=== PATIENT | female | born 1960 | race Caucasian/White ===

== ENCOUNTER → 2019-09-22 | Outpatient (CLI) | payer BC ==
[2019-09-22 11:04] LABS: Source, Urine Clean Catch
[2019-09-22 11:10] LABS: BASOPHILS ABSOLUTE AUTO 0.09 K/mm3 (0.00-0.23); BASOPHILS PERCENT AUTO 1 % (0-2); EOSINOPHILS ABSOLUTE AUTO 0.13 K/mm3 (0.00-0.68); EOSINOPHILS PERCENT AUTO 2 % (0-6); Hematocrit 41.2 % (33.0-51.0); Hemoglobin 13.8 g/dL (11.5-16.0); IMMATURE GRAN ABSOLUTE AUTO 0.02 K/mm3 (0.00-0.10); IMMATURE GRAN PERCENT AUTO 0 % (0-1); LYMPHOCYTES ABSOLUTE AUTO 2.47 K/mm3 (0.84-5.20); LYMPHOCYTES PERCENT AUTO 37 % (21-46); MONOCYTES ABSOLUTE AUTO 0.54 K/mm3 (0.16-1.47); MONOCYTES PERCENT AUTO 8 % (4-13); Mean Corpuscular HGB 31.2 pg (26.0-34.0); Mean Corpuscular HGB Conc 33.5 g/dL (31.5-36.5); Mean Corpuscular Volume 93 fL (80-100); Mean Platelet Volume 10.4 fL (9.1-12.4); NEUTROPHILS ABSOLUTE AUTO 3.36 K/mm3 (1.96-9.15); NEUTROPHILS PERCENT AUTO 51 % (41-73); Platelet Count 392 K/mm3 (150-400); RDW Coefficient Variation 13.4 % (11.7-14.2); RDW Standard Deviation 45.7 fL (35.1-46.3); Red Blood Cell Count 4.43 M/mm3 (3.80-5.20); White Blood Cell Count 6.61 K/mm3 (4.00-11.30)
[2019-09-22 11:22] LABS: Bacteria Few /hpf; Red Blood Cells, Urine 0-2 /hpf (0-2); Squamous Epithelial Cells Mod /hpf (Few)
[2019-09-22 11:28] LABS: Alanine Aminotransfer (ALT/SGP 15 U/L (12-78); Albumin, Blood 4.1 g/dL (3.4-5.0); Albumin/Globulin Ratio 1.1 (0.8-1.8); Alk Phos 94 U/L (40-126); Anion Gap 9 mmol/L (6-16); Aspartate Aminotrans (AST/SGOT 17 U/L (12-37); Bilirubin, Total 0.3 mg/dL (0.1-1.0); Blood Urea Nitrogen 21 mg/dL (8-24); Bun/Creatinine Ratio 32.3 (12.0-20.0); CO2, Blood 23 mmol/L (21-32); Calcium, Blood 9.2 mg/dL (8.5-10.1); Chloride, Blood 105 mmol/L (98-108); Creatinine, Blood 0.65 mg/dL (0.40-1.00); Globulin, Blood 3.8 g/dL (2.2-4.0); Glomerular Filtration Rate >60 (60-); Glucose, Blood 86 mg/dL (70-99); Potassium, Blood 4.2 mmol/L (3.5-5.5); Sodium, Blood 137 mmol/L (136-145); Thyroid Stimulating Hormone 1.612 uIU/mL (0.360-4.800); Total Protein, Blood 7.9 g/dL (6.4-8.2)
[2019-09-22 11:30] LABS: Troponin I <0.017 ng/mL (0.000-0.040)
== END | disposition home or self-care (01) ==
LOC: LAB SHORT 10:58 → LAB EV 10:58
PROVIDERS: Physician Assistant
DX: R35.0 Frequency of micturition (principal); R07.9 Chest pain, unspecified; R53.83 Other fatigue
CPT/HCPCS: 80053; 81015; 84443; 84484; 85025; 87086

== ENCOUNTER → 2019-11-16 | Outpatient (CLI) | payer BC ==
[2019-11-16 15:09] LABS: Source, Urine Clean Catch
[2019-11-16 16:03] LABS: Appearance, Urine Clear (Clear); Bilirubin, Urine Neg (Neg); Blood, Urine Neg (Neg); Color, Urine Yellow (P-Yellow); Glucose Qualitative, Urine Neg (Normal); Ketones, Urine 1+ (Neg); Leukocyte Esterase, Urine Neg (Neg); Nitrite, Urine Neg (Neg); Protein, Urine Neg (Neg); Urobilinogen, Urine NORM (Normal)
== END ==
LOC: LAB EV 15:04 → LAB FUT 11-15 10:45
PROVIDERS: Physician Assistant Medical
DX: R30.9 Painful micturition, unspecified (principal)
CPT/HCPCS: 81003

== ENCOUNTER 2021-06-10 13:09 | Day surgery (SDC) | payer BC ==
[~2021-06-10] VITALS: Ht 160 cm; Wt 56.3 kg
[2021-06-10] MEDS ORDERED: OMEP20ER PO (13:42)
[2021-06-10] MEDS ORDERED: CLIMARA1 EACH TOP (13:42)
[2021-06-10] MEDS ORDERED: ACET325 PO (13:43)
--- NOTE | 2021-06-10 17:05 | NUR ---
06/10/21 1705 Jennifer Rothman PT.'S BP ELEVATED POST PROCEDURE. DR. MISTRY AWARE. WILL CONTINUE TO MONITOR. PT. ALSO VERBALIZES HAVING A LITTLE CRAMPING IN ABD. BUT JUST A LITTLE. PT. GIVEN WARM BLANKETS. PT. DRINKING WATER & EATING JAMIR CRACKERS. CALL LIGHT IS WITHIN REACH. PT.SITTING UP IN RECLINER.
== END 2021-06-10 17:11 | disposition home or self-care (01) ==
LOC: ORSCSDS 13:09
PROVIDERS: Student in an Organized Health Care Education/Training Program
PROC: 0DB68ZX Excision of Stomach, Via Natural or Artificial Opening Endoscopic, Diagnostic (ICD-10-PCS; principal; 2021-06-10 14:30)
PROC: 0DBK8ZX Excision of Ascending Colon, Via Natural or Artificial Opening Endoscopic, Diagnostic (ICD-10-PCS; principal; 2021-06-10 14:30)
PROC: 3E0H8KZ Introduction of Other Diagnostic Substance into Lower GI, Via Natural or Artificial Opening Endoscopic (ICD-10-PCS; principal; 2021-06-10 14:30)
PROC: 0DBM8ZX Excision of Descending Colon, Via Natural or Artificial Opening Endoscopic, Diagnostic (ICD-10-PCS; principal; 2021-06-10 14:30)
PROC: 0DBL8ZX Excision of Transverse Colon, Via Natural or Artificial Opening Endoscopic, Diagnostic (ICD-10-PCS; principal; 2021-06-10 14:30)
PROC: 0DB58ZX Excision of Esophagus, Via Natural or Artificial Opening Endoscopic, Diagnostic (ICD-10-PCS; principal; 2021-06-10 14:30)
PROC: 0DBN8ZX Excision of Sigmoid Colon, Via Natural or Artificial Opening Endoscopic, Diagnostic (ICD-10-PCS; principal; 2021-06-10 14:30)
DX: R19.5 Other fecal abnormalities (principal); K57.30 Diverticulosis of large intestine without perforation or abscess without bleeding; D12.2 Benign neoplasm of ascending colon; D12.4 Benign neoplasm of descending colon; K31.7 Polyp of stomach and duodenum; K29.70 Gastritis, unspecified, without bleeding; K21.9 Gastro-esophageal reflux disease without esophagitis; R10.9 Unspecified abdominal pain; R63.4 Abnormal weight loss; I12.9 Hypertensive chronic kidney disease with stage 1 through stage 4 chronic kidney disease, or unspecified chronic kidney disease; N18.9 Chronic kidney disease, unspecified; Z80.0 Family history of malignant neoplasm of digestive organs; Z87.891 Personal history of nicotine dependence
CPT/HCPCS: 88305; 88342; J0330; J0461; J2405; J2704; J7120

== ENCOUNTER 2022-09-16 07:55 | Day surgery (SDC) | payer BC ==
[~2022-09-16] VITALS: Ht 157.5 cm; Wt 64.9 kg
[~2022-09-16 07:55] MED LIST: ACET325 PO; CLIMARA1 EACH TOP; OMEP20ER PO
--- NOTE | 2022-09-16 13:39 | NUR ---
ARRIVAL PT ARRIVED TO UNIT FROM PACU. SHE IS ALERT AND ORIENTED. SHE DENIES PAIN CURRENTLY AND HAS MINIMAL SENSATION IN HER LOWER EXTREMETIES FROM THE SPINAL. ABLE TO WIGGLE HER TOES. PPX4. POLAR PACK IN PLACE, TEDHOSE ON. CALL LIGHT IN REACH. PT PROVIDED WITH ICE WATER, JELLO AND CRACKERS. TOLERATING WELL. PT WILL CALL ONCE PAIN BEGINS TO INCREASE. SHE DENIES FURTHER NEEDS AT THIS TIME AND WANTS TO SLEEP CURRENTLY. AQUACEL IN PLACE, CDI.
--- NOTE | 2022-09-16 19:08 | NUR ---
SHIFT SUMMARY S/P LTHA DRESSING CDI, POLAR VIKTORIA ON. PT WORKED WITH THERAPY X1, WILL WORK AGAIN IN THE MORNING AND DISCHARGE. PAIN CONTROLLED PER EMAR, NAUSEA X1. RESOLVED AFTER MEDICATION. PAIN CONTROLLED AT THIS TIME. CALL LIGHT IN REACH. PT DENIES FURTHER NEEDS.
--- NOTE | 2022-09-17 05:05 | NUR ---
SHIFT SUMMARY PT RESTED WELL T/O SHIFT. 2 KURT/TYLENOL/TORADOL FOR PAIN MANAGEMENT. LEFT HIP DRESSING REMAINS CDI WITH POLAR PACK IN PLACE. UP WITH 1 ASSIST USING FWW/GB TO BRP. NAUSEA X1. NO EMESIS. USES CALL LIGHT APPROPRIATELY.
[2022-09-17 05:14] LABS: BASOPHILS ABSOLUTE AUTO 0.04 K/mm3 (0.00-0.23); BASOPHILS PERCENT AUTO 0 % (0-2); EOSINOPHILS PERCENT AUTO 0 % (0-6); Hematocrit 35.2 % (33.0-51.0); Hemoglobin 11.3 g/dL (11.5-16.0); IMMATURE GRAN ABSOLUTE AUTO 0.09 K/mm3 (0.00-0.10); IMMATURE GRAN PERCENT AUTO 0 % (0-1); LYMPHOCYTES ABSOLUTE AUTO 1.07 K/mm3 (0.84-5.20); LYMPHOCYTES PERCENT AUTO 5 % (21-46); MONOCYTES ABSOLUTE AUTO 1.43 K/mm3 (0.16-1.47); MONOCYTES PERCENT AUTO 7 % (4-13); Mean Corpuscular HGB 29.1 pg (26.0-34.0); Mean Corpuscular HGB Conc 32.1 g/dL (31.5-36.5); Mean Corpuscular Volume 91 fL (80-100); Mean Platelet Volume 10.6 fL (9.1-12.4); NEUTROPHILS ABSOLUTE AUTO 18.59 K/mm3 (1.96-9.15); NEUTROPHILS PERCENT AUTO 88 % (41-73); Platelet Count 336 K/mm3 (150-400); RDW Coefficient Variation 13.5 % (11.7-14.2); RDW Standard Deviation 45.1 fL (35.1-46.3); Red Blood Cell Count 3.88 M/mm3 (3.80-5.20); White Blood Cell Count 21.22 K/mm3 (4.00-11.30)
[2022-09-17 05:55] LABS: Bun/Creatinine Ratio 37.1 (12.0-20.0); Calcium, Blood 8.8 mg/dL (8.5-10.1); Creatinine, Blood 0.54 mg/dL (0.40-1.00)
[2022-09-17] MEDS ORDERED: ASPI81CH PO (08:19)
[2022-09-17] MEDS ORDERED: Percocet 5-3251 EACH PO (08:19)
--- NOTE | 2022-09-17 10:21 | NUR ---
DISCHARGE: PACKET PRINTED AND PT EDUCATED. IV DC WNL, TIP INTACT. PT GIVEN EXTRA AQUACEL DRESSINGS. PER PT SCRIPTS PREVIOUSLY FILLED. LEFT UNIT WITH THIS RN AT ABOUT 1000.
== END 2022-09-17 10:07 | disposition home or self-care (01) ==
LOC: ORSCMMR 07:55 → ORD 09:15 → ORSCMMR 09:15 → SURS 13:20 → ORSCMMR 09-17 10:07
PROVIDERS: Orthopaedic Surgery
PROC: 0SRB0JZ Replacement of Left Hip Joint with Synthetic Substitute, Open Approach (ICD-10-PCS; principal; 2022-09-16 09:15)
DX: M16.12 Unilateral primary osteoarthritis, left hip (principal); I25.10 Atherosclerotic heart disease of native coronary artery without angina pectoris; E78.5 Hyperlipidemia, unspecified; Z87.891 Personal history of nicotine dependence; K21.9 Gastro-esophageal reflux disease without esophagitis; Z79.899 Other long term (current) drug therapy; Z79.82 Long term (current) use of aspirin
CPT/HCPCS: 36415; 72170; 80048; 85025; 97110; 97116; 97161; 97530; A9270; C1713; C1776; J0171; J0690; J0735; J1100; J1170; J1885; J2250; J2370; J2405; J2704; J2765; J2795; J3010; J3370; J7120

== ENCOUNTER 2022-12-04 05:24 | Emergency (ER) | payer SELFPAY ==
[~2022-12-04] VITALS: Ht 160 cm; Wt 61.2 kg
[~2022-12-04 05:24] MED LIST changes: +ASPI81CH PO; +ONDA4ODT MM; +Percocet 5-3251 EACH PO
[2022-12-04 06:04] LABS: BASOPHILS PERCENT AUTO 1 % (0-2); EOSINOPHILS ABSOLUTE AUTO 0.12 K/mm3 (0.00-0.68); EOSINOPHILS PERCENT AUTO 1 % (0-6); Hematocrit 35.2 % (33.0-51.0); Hemoglobin 11.7 g/dL (11.5-16.0); IMMATURE GRAN ABSOLUTE AUTO 0.21 K/mm3 (0.00-0.10); IMMATURE GRAN PERCENT AUTO 2 % (0-1); LYMPHOCYTES ABSOLUTE AUTO 1.75 K/mm3 (0.84-5.20); LYMPHOCYTES PERCENT AUTO 15 % (21-46); MONOCYTES ABSOLUTE AUTO 0.98 K/mm3 (0.16-1.47); MONOCYTES PERCENT AUTO 8 % (4-13); Mean Corpuscular HGB 27.9 pg (26.0-34.0); Mean Corpuscular HGB Conc 33.2 g/dL (31.5-36.5); Mean Corpuscular Volume 84 fL (80-100); Mean Platelet Volume 9.5 fL (9.1-12.4); NEUTROPHILS ABSOLUTE AUTO 8.92 K/mm3 (1.96-9.15); NEUTROPHILS PERCENT AUTO 74 % (41-73); Platelet Count 699 K/mm3 (150-400); RDW Standard Deviation 45.3 fL (35.1-46.3); White Blood Cell Count 12.08 K/mm3 (4.00-11.30)
[2022-12-04 06:22] LABS: Albumin, Blood 2.8 g/dL (3.4-5.0); Albumin/Globulin Ratio 0.6 (0.8-1.8); Bilirubin, Total 0.2 mg/dL (0.1-1.0); Bun/Creatinine Ratio 25.1 (12.0-20.0); Calcium, Blood 9.6 mg/dL (8.5-10.1); Creatinine, Blood 0.72 mg/dL (0.40-1.00); Globulin, Blood 4.7 g/dL (2.2-4.0); Potassium, Blood 3.3 mmol/L (3.5-5.5); Total Protein, Blood 7.5 g/dL (6.4-8.2)
[2022-12-04 06:56] LABS: Source, Urine Clean Catch
[2022-12-04 07:03] LABS: Bilirubin, Urine Neg (Neg); Blood, Urine 1+ (Neg); Glucose Qualitative, Urine Neg (Neg); Ketones, Urine Neg (Neg); Leukocyte Esterase, Urine Neg (Neg); Nitrite, Urine Neg (Neg); Protein, Urine 1+ (Neg); Urobilinogen, Urine NORM (Normal)
[2022-12-04 07:13] LABS: Appearance, Urine Clear (Clear); Color, Urine Yellow (P-Yellow)
[2022-12-04 07:15] LABS: Bacteria Not Seen /hpf; Red Blood Cells, Urine 0-2 /hpf (0-2); Squamous Epithelial Cells Rare /hpf (Few); White Blood Cells, Urine Not Seen /hpf (0-5)
[2022-12-04] MEDS ORDERED: Tessalon200 MG PO (08:04)
[2022-12-04] MEDS ORDERED: AZIT250 PO (08:04)
== END 2022-12-04 08:04 | disposition home or self-care (01) ==
LOC: ER 05:24
PROVIDERS: Emergency Medicine
DX: U07.1 COVID-19 (principal); J15.9 Unspecified bacterial pneumonia; K21.9 Gastro-esophageal reflux disease without esophagitis; I48.91 Unspecified atrial fibrillation; F17.210 Nicotine dependence, cigarettes, uncomplicated; Z79.899 Other long term (current) drug therapy; Z79.82 Long term (current) use of aspirin
CPT/HCPCS: 36415; 71045; 80053; 81001; 83880; 85025; 85379; 93005; 93010; 99284-25; A9270; J7030

== ENCOUNTER 2025-06-30 10:00 | Day surgery (SDC) | payer BC ==
[~2025-06-30] VITALS: Ht 160 cm; Wt 70.6 kg
[~2025-06-30 10:00] MED LIST changes: +AZIT250 PO; +Tessalon200 MG PO
[2025-06-30] MEDS ORDERED: CeFAZolin Sodium 2,000 MG VIAL ONE (10:28)
[2025-06-30] MEDS ORDERED: Bupivacaine 0.5% W/EPI 1:200000 SDV 30 ML Vial ONE (10:40)
[2025-06-30] MEDS ORDERED: Lidocaine HCl 2% 10 ML SDA ONE (10:40)
--- NOTE | 2025-06-30 10:49 | NUR ---
06/30/25 1049 Estela Mckeon PT WITH SMALL RED SCAB ON LEFT ZARATE FROM WHERE PT PULLED A TIC OFF HERSELF AFTER WALKING HER DOG.
[2025-06-30] MEDS ORDERED: Glycopyrrolate 0.2 MG/ML 5ML VIAL ONE (10:51)
[2025-06-30] MEDS ORDERED: FentaNYL Citrate 50 MCG/ML 2 ML Injection ONE ×2 (10:51→12:08)
[2025-06-30] MEDS ORDERED: Midazolam HCL 1 MG/ML 5MLVIAL ONE (11:11)
[2025-06-30] MEDS ORDERED: Ondansetron HCl 2 MG / ML 2ML Vial ONE (11:32)
[2025-06-30] MEDS ORDERED: Dexamethasone Sod Phos 10 MG/ML 1ML VIAL ONE (11:32)
[2025-06-30] MEDS ORDERED: Ketorolac Tromethamine 30mg Vial ONE (11:33)
[2025-06-30] MEDS ORDERED: Phenylephrine HCl 100 MCG/ML-NS 10MLSYR (1MG/10ML) ONE (11:46)
[2025-06-30] MEDS ORDERED: HYDROmorphone HCl/Pf 1MG SYR ONE (13:29)
--- NOTE | 2025-06-30 14:34 | NUR ---
06/30/25 1433 LUIS BELOL PT TAKEN DIRECTLY TO STEP DOWN, PER VU ANESTHESIA
[2025-06-30 15:04] VITALS: BP 155/87
== END 2025-06-30 15:05 | disposition home or self-care (01) ==
LOC: ORSCSDS 10:00
PROVIDERS: Podiatrist Foot & Ankle Surgery
PROC: 0SGL04Z Fusion of Left Tarsometatarsal Joint with Internal Fixation Device, Open Approach (ICD-10-PCS; principal; 2025-06-30 11:30)
DX: Q66.222 Congenital metatarsus adductus, left foot (principal); M20.12 Hallux valgus (acquired), left foot; M79.672 Pain in left foot; I12.9 Hypertensive chronic kidney disease with stage 1 through stage 4 chronic kidney disease, or unspecified chronic kidney disease; N18.9 Chronic kidney disease, unspecified; K21.9 Gastro-esophageal reflux disease without esophagitis; Z87.891 Personal history of nicotine dependence; I25.2 Old myocardial infarction; J44.9 Chronic obstructive pulmonary disease, unspecified
CPT/HCPCS: A6253; C1713; J0690; J1100; J1171; J1885; J2003; J2250; J2371; J2405; J2704; J3010